=== PATIENT | female | born 1945 | race Caucasian/White ===

== ENCOUNTER 2019-07-23 19:27 | Inpatient (IN) | payer SELFPAY ==
[~2019-07-23] VITALS: Ht 152.4 cm; Wt 68.5 kg
[2019-07-23] MEDS ORDERED: SODIUM CHLORIDE 0.9% 1000ML BAG (SEPSIS BOLUS) IV ONE (20:45)
[2019-07-23 20:56] LABS: HEMATOCRIT. 29.2 % (36.0-48.0); HEMOGLOBIN. 9.6 g/dL (12.0-16.0); MEAN CORPUSCULAR HEMOGLOBIN 32.5 pg (28.0-32.0); MEAN CORPUSCULAR VOLUME 99.1 fL (81.0-99.0); MEAN PLATELET VOLUME 7.9 fl (7.4-10.4); PLATELET 198 x1000/uL (130-400); RED BLOOD CELL COUNT 2.95 mill/uL (4.2-5.4); RED CELL DISTRIBUTION WIDTH 14.8 % (11.6-14.6)
[2019-07-23 22:10] LABS: PLATELET ESTIMATE NORMAL
[2019-07-23 23:23] LABS: CHLORIDE 79 mEq/L (98-107)
[2019-07-23 23:36] LABS: INR 1.4; PROTHROMBIN TIME 14.8 sec (9.6-11.0)
[2019-07-23 23:38] LABS: CLARITY URINE CLOUDY (CLEAR); COLOR URINE DARK YELLOW (YELLOW); KETONES URINE TRACE (NEGATIVE); LEUKOCYTE ESTERASE URINE 2+ (NEGATIVE); NITRITE URINE NEGATIVE (NEGATIVE); OCCULT BLOOD URINE TRACE (NEGATIVE); PROTEIN URINE 1+ (NEGATIVE); SPECIFIC GRAVITY URINE 1.016 (1.005-1.030)
[2019-07-23] MEDS ORDERED: PIPERACILLIN/TAZ 3.375G PREMIX 50 ML IV ONE (23:45)
[2019-07-23] MEDS ORDERED: POTASSIUM CHLORIDE INJ 40 MEQ in DEXT 5% WATER 250 ML IV ONE (23:45)
[2019-07-23] MEDS ORDERED: POTASSIUM CHLORIDE 20MEQ TABLET SR PO ONE (23:45)
[2019-07-23] MEDS ORDERED: VANCOMYCIN 1 G PREMIX 200 ML IV ONE (23:45)
[2019-07-24] MEDS ORDERED: DOCUSATE SODIUM 100MG CAPSULE PO PRN (09:30)
[2019-07-24] MEDS ORDERED: NOREPINEPHRINE 4 MG in DEXT 5% WATER 246 ML IV PRN (09:30)
[2019-07-24] MEDS ORDERED: GUAIFENESIN 200MG/10ML SUGAR FREE UDC PO PRN (09:30)
[2019-07-24] MEDS ORDERED: PIPERACILLIN/TAZ 3.375G PREMIX 50 ML IV SCH (09:30)
[2019-07-24] MEDS ORDERED: ONDANSETRON HCL 4MG/2ML INJ IV PRN (09:30)
[2019-07-24] MEDS ORDERED: NOREPINEPHRINE 4MG/250ML PMX 250 ML IV PRN ×2 (09:30→21:45)
[2019-07-24] MEDS ORDERED: ACETAMINOPHEN 325MG TABLET PO PRN (09:30)
[2019-07-24] MEDS ORDERED: ACETAMINOPHEN 650MG/20.3ML UDC GT PRN ×2 (09:30)
[2019-07-24] MEDS: SODIUM CHLORIDE 0.9% 1,000 ML IV SCH (09:58)
[2019-07-24] MEDS ORDERED: ALBUMIN HUMAN 25GM/100ML (25%) IV ONE (11:00)
[2019-07-24] MEDS: PIPERACILLIN/TAZOBACTAM 2.25 G in DEXTROSE 5% WATER 50 ML IV SCH (11:00)
[2019-07-24] MEDS ORDERED: LIDOCAINE HCL 1% 20ML VIAL (Pyxis) INJ ONE (11:25)
[2019-07-24 11:39] LABS: CHLORIDE 82 mEq/L (98-107)
[2019-07-24 11:43] LABS: HEMATOCRIT. 27.9 % (36.0-48.0); HEMOGLOBIN. 9.2 g/dL (12.0-16.0); MEAN CORPUSCULAR HEMOGLOBIN 32.9 pg (28.0-32.0); MEAN CORPUSCULAR VOLUME 99.8 fL (81.0-99.0); MEAN PLATELET VOLUME 7.6 fl (7.4-10.4); PLATELET 181 x1000/uL (130-400); RED BLOOD CELL COUNT 2.79 mill/uL (4.2-5.4)
[2019-07-24 12:24] LABS: PLATELET ESTIMATE NORMAL
[2019-07-24] MEDS: SODIUM CHLORIDE 0.9% INJ 3ML FLUSH IVF SCH (14:00)
[2019-07-24] MEDS ORDERED: POTASSIUM CHLORIDE 20MEQ TABLET SR PO SCH (21:45)
[2019-07-25] VITALS (84 sets, daily range): BP systolic 75–137; BP diastolic 41–75
[2019-07-25] MEDS ORDERED: POTASSIUM CHLORIDE INJ 40 MEQ in DEXT 5% WATER 250 ML IV SCH (04:00)
[2019-07-25] MEDS ORDERED: CALCIUM GLUCONATE 1,000 MG in DEXT 5% WATER 100 ML IV SCH (04:00)
[2019-07-25] MEDS: NOREPINEPHRINE 4 MG in DEXT 5% WATER 246 ML IV PRN ×2 (04:12→16:41)
[2019-07-25] MEDS: CALCIUM CARBONATE 1250MG TABLET (500MG ELEMENTAL CALCIUM) PO SCH ×2 (04:28→21:09)
[2019-07-25] MEDS ORDERED: VANCOMYCIN 750 MG PREMIX 150 ML IV SCH (05:00)
[2019-07-25 05:51] LABS: HEMATOCRIT. 26.5 % (36.0-48.0); HEMOGLOBIN. 8.8 g/dL (12.0-16.0); MEAN CORPUSCULAR HEMOGLOBIN 33.1 pg (28.0-32.0); MEAN CORPUSCULAR VOLUME 99.6 fL (81.0-99.0); MEAN PLATELET VOLUME 7.5 fl (7.4-10.4); PLATELET 143 x1000/uL (130-400); RED BLOOD CELL COUNT 2.66 mill/uL (4.2-5.4); RED CELL DISTRIBUTION WIDTH 15.5 % (11.6-14.6)
[2019-07-25 06:05] LABS: CHLORIDE 88 mEq/L (98-107)
[2019-07-25 06:14] LABS: LDL CHOLESTEROL 225 mg/dL (5-100)
[2019-07-25 06:15] LABS: GAMMA GLUTAMYL TRANSPEPTIDASE 643 IU/L (7-32)
[2019-07-25 06:16] LABS: HDL CHOLESTEROL 6 mg/dL (40-59)
[2019-07-25 06:25] LABS: CARCINO EMBRYONIC ANTIGEN 1.5 ng/ml; CORTISOL 17.7 ucg/dL
[2019-07-25 06:28] LABS: PHOSPHORUS 0.9 mg/dL (2.5-4.9)
[2019-07-25 06:36] LABS: HEPATITIS B SURFACE ANTIGEN NEGATIVE
[2019-07-25 07:05] LABS: HEPATITIS A AB IGM NEGATIVE (NEGATIVE)
[2019-07-25] MEDS ORDERED: POTASSIUM PHOS,M-BASIC-D-BASIC 15 MMOL in DEXT 5% WATER 245 ML IV NR (08:00)
[2019-07-25] MEDS ORDERED: MAGNESIUM 4 G PREMIX 100 ML IV NR (08:00)
[2019-07-25 09:03] LABS: PLATELET ESTIMATE NORMAL
[2019-07-25] MEDS ORDERED: MIDODRINE HCL 5MG TABLET PO SCH (11:30)
[2019-07-25] MEDS ORDERED: SODIUM PHOS,M-BASIC-D-BASIC 30 MM in DEXT 5% WATER 500 ML IV NR (12:00)
[2019-07-25] MEDS: PIPERACILLIN/TAZOBACTAM 2.25 G in DEXTROSE 5% WATER 50 ML IV SCH ×3 (12:34→21:09)
[2019-07-25 12:39] LABS: BG BASE EXCESS -2.1 mmol/L (-2.0-2.0); BG CARBOXYHEMOGLOBIN 0.3 % (0.5-1.5); BG DEOXYHEMOGLOBIN 4.2 % (0.0-5.0); BG FRACTION INSPIRED OXYGEN 28; BG HCO3 ACT 20.6 mmol/L (22.0-26.0); BG METHEMOGLOBIN 0.3 % (0.0-1.5); BG OXYGEN SATURATION 95.8 % (92.0-98.5); BG OXYHEMOGLOBIN 95.2 % (94.0-97.0); BG PCO2 27.5 mmHg (35.0-45.0); BG PH 7.492 (7.350-7.450); BG PO2 81.1 mmHg (75.0-100.0); BG SAMPLE SITE RIGHT BRACHIAL; BG TOTAL HEMOGLOBIN 8.4 g/dL (12.0-18.0); BG VENT MODE NASAL CANNULA
[2019-07-25] MEDS: SODIUM CHLORIDE 0.9% 1,000 ML IV SCH (14:47)
[2019-07-25] MEDS: SODIUM CHLORIDE 0.9% INJ 3ML FLUSH IVF SCH ×2 (14:53→21:10)
[2019-07-25 19:49] LABS: CHLORIDE 88 mEq/L (98-107)
[2019-07-25 19:54] LABS: PHOSPHORUS 2.8 mg/dL (2.5-4.9)
[2019-07-25] MEDS: MIDODRINE HCL 5MG TABLET PO SCH (21:10)
[2019-07-25] MEDS ORDERED: POTASSIUM CHLORIDE INJ 40 MEQ in DEXT 5% WATER 250 ML IV NR (22:00)
[2019-07-25] MEDS: VANCOMYCIN 750 MG PREMIX 150 ML IV SCH (22:21)
[2019-07-25] MEDS: CALCIUM GLUCONATE 1,000 MG in DEXT 5% WATER 100 ML IV SCH (23:53)
[2019-07-26] VITALS (52 sets, daily range): BP systolic 65–135; BP diastolic 34–85
[2019-07-26] MEDS: SODIUM CHLORIDE 0.9% 1,000 ML IV SCH ×2 (02:36→11:24)
[2019-07-26] MEDS: NOREPINEPHRINE 4 MG in DEXT 5% WATER 246 ML IV PRN ×2 (02:37→18:44)
[2019-07-26] MEDS: PIPERACILLIN/TAZOBACTAM 2.25 G in DEXTROSE 5% WATER 50 ML IV SCH ×4 (04:02→22:13)
[2019-07-26] MEDS: SODIUM CHLORIDE 0.9% INJ 3ML FLUSH IVF SCH ×3 (05:31→22:15)
[2019-07-26] MEDS: MIDODRINE HCL 5MG TABLET PO SCH ×3 (05:35→22:13)
[2019-07-26 05:59] LABS: HEMATOCRIT. 26.4 % (36.0-48.0); MEAN CORPUSCULAR HEMOGLOBIN 32.9 pg (28.0-32.0); MEAN CORPUSCULAR VOLUME 97.1 fL (81.0-99.0); MEAN PLATELET VOLUME 7.8 fl (7.4-10.4); PLATELET 122 x1000/uL (130-400); RED BLOOD CELL COUNT 2.72 mill/uL (4.2-5.4); RED CELL DISTRIBUTION WIDTH 15.6 % (11.6-14.6)
[2019-07-26 06:04] LABS: CHLORIDE 89 mEq/L (98-107)
[2019-07-26 06:11] LABS: PHOSPHORUS 2.1 mg/dL (2.5-4.9)
[2019-07-26 09:06] LABS: VITAMIN D 25-OH 42.1 ng/mL (30.0-100.0)
[2019-07-26] MEDS: CALCIUM GLUCONATE 1,000 MG in DEXT 5% WATER 100 ML IV SCH ×2 (09:19→22:15)
[2019-07-26] MEDS: CALCIUM CARBONATE 1250MG TABLET (500MG ELEMENTAL CALCIUM) PO SCH ×2 (09:19→22:13)
[2019-07-26] MEDS: FAMOTIDINE 20MG/2ML VIAL IV SCH ×2 (09:19→22:13)
[2019-07-26 09:23] LABS: PLATELET ESTIMATE SLIGHTLY DECREASED
[2019-07-26] MEDS ORDERED: ALBUMIN HUMAN 25GM/100ML (25%) IV NR (13:00)
[2019-07-26] MEDS ORDERED: SODIUM CHLORIDE 3% 500 ML IV ONE (14:30)
[2019-07-26 17:15] LABS: CHLORIDE 91 mEq/L (98-107)
[2019-07-26] MEDS: VANCOMYCIN 750 MG PREMIX 150 ML IV SCH (17:34)
[2019-07-26] MEDS ORDERED: POTASSIUM CHLORIDE INJ 40 MEQ in DEXT 5% WATER 250 ML IV NR (21:00)
[2019-07-27] VITALS (93 sets, daily range): BP systolic 57–173; BP diastolic 24–114
[2019-07-27] MEDS: PIPERACILLIN/TAZOBACTAM 2.25 G in DEXTROSE 5% WATER 50 ML IV SCH ×4 (03:37→22:19)
[2019-07-27] MEDS: NOREPINEPHRINE 4 MG in DEXT 5% WATER 246 ML IV PRN (03:38)
[2019-07-27] MEDS: SODIUM CHLORIDE 0.9% INJ 3ML FLUSH IVF SCH ×3 (05:23→22:00)
[2019-07-27] MEDS: MIDODRINE HCL 5MG TABLET PO SCH ×4 (06:00→22:19)
[2019-07-27 06:07] LABS: CHLORIDE 95 mEq/L (98-107)
[2019-07-27 06:11] LABS: EOSINOPHILS % 0.3 % (0.0-5.0); LYMPHOCYTES % 42.6 % (20.0-50.0); MEAN CORPUSCULAR HEMOGLOBIN 33.2 pg (28.0-32.0); MEAN PLATELET VOLUME 7.7 fl (7.4-10.4); MONOCYTES % 8.5 % (2.0-8.0); NEUTROPHILS % 46.6 % (40.0-76.0); PLATELET 106 x1000/uL (130-400); RED CELL DISTRIBUTION WIDTH 15.5 % (11.6-14.6)
[2019-07-27 06:28] LABS: PHOSPHORUS 0.9 mg/dL (2.5-4.9)
[2019-07-27] MEDS ORDERED: POTASSIUM PHOS,M-BASIC-D-BASIC 20 MMOL in DEXT 5% WATER 243.3333 ML IV SCH (09:00)
[2019-07-27] MEDS: FAMOTIDINE 20MG/2ML VIAL IV SCH ×2 (09:17→22:19)
[2019-07-27] MEDS: CALCIUM CARBONATE 1250MG TABLET (500MG ELEMENTAL CALCIUM) PO SCH ×2 (09:17→22:19)
[2019-07-27] MEDS: CALCIUM GLUCONATE 1,000 MG in DEXT 5% WATER 100 ML IV SCH ×2 (09:17→22:19)
[2019-07-27] MEDS ORDERED: ALBUMIN HUMAN 25GM/100ML (25%) IV SCH (09:45)
[2019-07-27] MEDS: FUROSEMIDE 20MG/2ML VIAL IVP SCH (10:56)
[2019-07-27] MEDS ORDERED: KCL 20MEQ/100ML PREMIX 100 ML IV ONE (11:30)
[2019-07-27] MEDS: SODIUM CHLORIDE 3% 500 ML IV SCH (12:01)
[2019-07-27] MEDS: VANCOMYCIN 750 MG PREMIX 150 ML IV SCH (13:24)
[2019-07-27 15:03] LABS: SODIUM URINE RANDOM 37 mEq/L
[2019-07-27] MEDS ORDERED: NOREPINEPHRINE 16 MG in DEXTROSE 5% WATER 250 ML IV PRN (15:30)
[2019-07-27] MEDS ORDERED: SODIUM PHOS,M-BASIC-D-BASIC 30 MM in DEXT 5% WATER 500 ML IV ONE (17:00)
[2019-07-27] MEDS ORDERED: NOREPINEPHRINE 16 MG in SODIUM CHLORIDE 0.9% 250 ML IV PRN (18:30)
[2019-07-28] VITALS (86 sets, daily range): BP systolic 62–158; BP diastolic 23–93
[2019-07-28] MEDS: VANCOMYCIN 750 MG PREMIX 150 ML IV SCH ×2 (04:45→22:07)
[2019-07-28 05:39] LABS: CHLORIDE 102 mEq/L (98-107)
[2019-07-28 05:41] LABS: HEMOGLOBIN. 7.1 g/dL (12.0-16.0); MEAN CORPUSCULAR HEMOGLOBIN 33.3 pg (28.0-32.0); MEAN CORPUSCULAR VOLUME 95.8 fL (81.0-99.0); PLATELET 78 x1000/uL (130-400); RED BLOOD CELL COUNT 2.12 mill/uL (4.2-5.4); RED CELL DISTRIBUTION WIDTH 15.9 % (11.6-14.6)
[2019-07-28 05:45] LABS: PHOSPHORUS 3.9 mg/dL (2.5-4.9)
[2019-07-28 05:54] LABS: HEMATOCRIT. 20.3 % (36.0-48.0)
[2019-07-28] MEDS: MIDODRINE HCL 5MG TABLET PO SCH ×3 (06:00→21:27)
[2019-07-28] MEDS: SODIUM CHLORIDE 0.9% INJ 3ML FLUSH IVF SCH ×3 (06:00→21:26)
[2019-07-28] MEDS: PIPERACILLIN/TAZOBACTAM 2.25 G in DEXTROSE 5% WATER 50 ML IV SCH ×4 (06:32→21:24)
[2019-07-28] MEDS: SODIUM CHLORIDE 3% 500 ML IV SCH (06:34)
[2019-07-28 07:47] LABS: PLATELET ESTIMATE DECREASED
[2019-07-28] MEDS ORDERED: FUROSEMIDE 40MG/4ML VIAL IVP SCH (08:45)
[2019-07-28 08:55] LABS: BG BASE EXCESS -7.1 mmol/L (-2.0-2.0); BG CARBOXYHEMOGLOBIN 0.3 % (0.5-1.5); BG DEOXYHEMOGLOBIN 9.6 % (0.0-5.0); BG FRACTION INSPIRED OXYGEN 32; BG HCO3 ACT 19.9 mmol/L (22.0-26.0); BG METHEMOGLOBIN 0.3 % (0.0-1.5); BG OXYGEN SATURATION 90.3 % (92.0-98.5); BG OXYHEMOGLOBIN 89.8 % (94.0-97.0); BG PCO2 47.5 mmHg (35.0-45.0); BG PO2 72.2 mmHg (75.0-100.0); BG SAMPLE SITE RIGHT BRACHIAL; BG TOTAL HEMOGLOBIN 7.9 g/dL (12.0-18.0); BG VENT MODE NASAL CANNULA
[2019-07-28] MEDS ORDERED: MAGNESIUM 2 G PREMIX 50 ML IV SCH (09:00)
[2019-07-28] MEDS ORDERED: POTASSIUM CHLORIDE INJ 40 MEQ in DEXT 5% WATER 250 ML IV SCH (09:00)
[2019-07-28] MEDS: FUROSEMIDE 20MG/2ML VIAL IVP SCH (09:05)
[2019-07-28] MEDS: FAMOTIDINE 20MG/2ML VIAL IV SCH ×2 (09:05→21:26)
[2019-07-28] MEDS: CALCIUM GLUCONATE 1,000 MG in DEXT 5% WATER 100 ML IV SCH ×2 (09:07→21:25)
[2019-07-28] MEDS ORDERED: ALBUMIN HUMAN 25GM/100ML (25%) IV SCH (09:15)
[2019-07-28] MEDS: CALCIUM CARBONATE 1250MG TABLET (500MG ELEMENTAL CALCIUM) PO SCH ×2 (09:46→21:26)
[2019-07-28] MEDS: POTASSIUM CHLORIDE 20MEQ TABLET SR PO SCH (09:46)
[2019-07-28] MEDS ORDERED: IPRATROPIUM/ALBUTEROL 0.5-3(2.5)MG/3ML NEB HHN PRN (10:30)
[2019-07-28 16:28] LABS: HEMATOCRIT. 24.7 % (36.0-48.0); HEMOGLOBIN. 8.6 g/dL (12.0-16.0); MEAN CORPUSCULAR HEMOGLOBIN 32.7 pg (28.0-32.0); MEAN CORPUSCULAR VOLUME 94.2 fL (81.0-99.0); MEAN PLATELET VOLUME 7.9 fl (7.4-10.4); PLATELET 68 x1000/uL (130-400); RED BLOOD CELL COUNT 2.62 mill/uL (4.2-5.4); RED CELL DISTRIBUTION WIDTH 16.2 % (11.6-14.6)
[2019-07-28 17:09] LABS: PLATELET ESTIMATE DECREASED
[2019-07-28] MEDS: FUROSEMIDE 40MG/4ML VIAL IVP SCH (21:25)
[2019-07-29] VITALS (17 sets, daily range): BP systolic 70–126; BP diastolic 34–68
[2019-07-29] MEDS ORDERED: EPINEPHRINE 1 MG in SODIUM CHLORIDE 0.9% 249 ML IV PRN (03:30)
[2019-07-29] MEDS: PIPERACILLIN/TAZOBACTAM 2.25 G in DEXTROSE 5% WATER 50 ML IV SCH (03:51)
[2019-07-29 04:55] LABS: CHLORIDE 99 mEq/L (98-107)
[2019-07-29 04:56] LABS: HEMATOCRIT. 24.9 % (36.0-48.0); HEMOGLOBIN. 8.7 g/dL (12.0-16.0); MEAN CORPUSCULAR HEMOGLOBIN 33.2 pg (28.0-32.0); MEAN CORPUSCULAR VOLUME 94.5 fL (81.0-99.0); MEAN PLATELET VOLUME 8.6 fl (7.4-10.4); PLATELET 67 x1000/uL (130-400); RED BLOOD CELL COUNT 2.63 mill/uL (4.2-5.4); RED CELL DISTRIBUTION WIDTH 16.7 % (11.6-14.6)
[2019-07-29 05:01] LABS: PHOSPHORUS 4.4 mg/dL (2.5-4.9)
[2019-07-29] MEDS: SODIUM CHLORIDE 0.9% INJ 3ML FLUSH IVF SCH (05:53)
[2019-07-29] MEDS: MIDODRINE HCL 5MG TABLET PO SCH (05:53)
[2019-07-29 07:32] LABS: PLATELET ESTIMATE DECREASED
[2019-07-29] MEDS ORDERED: POTASSIUM CHLORIDE INJ 40 MEQ in DEXT 5% WATER 250 ML IV NR (08:00)
[2019-07-29] MEDS: FAMOTIDINE 20MG/2ML VIAL IV SCH (08:25)
[2019-07-29] MEDS: CALCIUM CARBONATE 1250MG TABLET (500MG ELEMENTAL CALCIUM) PO SCH (08:25)
[2019-07-29] MEDS: CALCIUM GLUCONATE 1,000 MG in DEXT 5% WATER 100 ML IV SCH (08:25)
[2019-07-29] MEDS: POTASSIUM CHLORIDE 20MEQ TABLET SR PO SCH (08:25)
[2019-07-29] MEDS: FUROSEMIDE 40MG/4ML VIAL IVP SCH (08:26)
[2019-07-29] MEDS ORDERED: FUROSEMIDE 100MG/10ML VIAL IV SCH (18:00)
[2019-07-29] MEDS ORDERED: VANCOMYCIN 750 MG PREMIX 150 ML IV SCH (21:00)
[2019-07-29] MEDS ORDERED: POTASSIUM CHLORIDE 20MEQ TABLET SR PO SCH (21:00)
== END 2019-07-29 11:55 | disposition expired | DRG 720 ==
LOC: ER 19:27 → CVICU 07-24 00:29 → EDBEDREQ 07-24 00:35 → EDBEDREQTM 07-24 00:35 → EDBEDREQSVC 07-24 10:12 → ENRESERV 07-25 01:38
PROVIDERS: ADMIT Family Medicine; ATTEND Family Medicine
PROC: 02H633Z Insertion of Infusion Device into Right Atrium, Percutaneous Approach (ICD-10-PCS; principal; 2019-07-24)
PROC: B548ZZA Ultrasonography of Superior Vena Cava, Guidance (ICD-10-PCS; 2019-07-24)
DX: A41.9 Sepsis, unspecified organism (principal); E43 Unspecified severe protein-calorie malnutrition; R65.21 Severe sepsis with septic shock; G93.41 Metabolic encephalopathy; J90 Pleural effusion, not elsewhere classified; D68.9 Coagulation defect, unspecified; D64.9 Anemia, unspecified; K72.90 Hepatic failure, unspecified without coma; E83.51 Hypocalcemia; E87.1 Hypo-osmolality and hyponatremia; E87.6 Hypokalemia; M81.0 Age-related osteoporosis without current pathological fracture; Z66 Do not resuscitate; Z83.3 Family history of diabetes mellitus; Z79.899 Other long term (current) drug therapy; N39.0 Urinary tract infection, site not specified; R63.4 Abnormal weight loss; Z51.5 Encounter for palliative care; Z68.29 Body mass index [BMI] 29.0-29.9, adult
CPT/HCPCS: 36415; 36573; 36600; 71045; 71250; 74176; 74181; 76604; 76700; 80048; 80053; 80061; 80202; 81003; 82105; 82306; 82330; 82375; 82378; 82533; 82805; 82977; 83605; 83735; 83930; 83935; 83970; 84100; 84300; 84443; 84484; 85025; 86301; 86304; 86705; 86709; 86803; 86850; 86900; 86920; 87340; 87493; 93005; 93306; 99291; C1725; J0610; J1940; J2543; J3370; J3475; J3480; J3490; J7030; J7060; P9016; P9047